=== PATIENT | male | born 1985 | race Hispanic/Latino ===

== ENCOUNTER 2017-04-02 01:56 | Emergency (ER) | payer OTHER ==
[2017-04-02 02:11] VITALS: BP 114/75; PULSE 75; RESP 17; TEMP 98.3; O2SAT 99
[2017-04-02] MEDS ORDERED: Sodium Chloride 0.9% 1,000 ML IV STA (02:29)
--- NOTE | 2017-04-02 03:20 | ED PDOC ---
HPI: General Adult Time Seen by Provider: 04/02/17 02:05 Chief Complaint (Nursing): ENT Problem Chief Complaint (Provider): ENT Problem History Per: Patient History/Exam Limitations: no limitations Onset/Duration Of Symptoms: Days (x 1 week) Current Symptoms Are (Timing): Still Present Additional Complaint(s): 31 year old male presents to the ED complaining of a sore throat and painful swallowing, onset 1 week ago. He visited [facility] where he was given antibiotics. He finished the antibiotics and still was in pain. He then was switched by MD to steroids which he also reports finishing with no relief. Yesterday he was put on clindamycin and took 60mg of prednisone but only took 1 dose. Still having pain on right side with swelling on his face. Denies fever or chills. PMD: none provided Past Medical History Reviewed: Historical Data, Nursing Documentation, Vital Signs Vital Signs: Last Vital Signs Temp 98.3 F 04/02/17 01:56 Pulse 75 04/02/17 01:56 Resp 17 04/02/17 01:56 BP 114/75 04/02/17 01:56 Pulse Ox 99 04/02/17 04:35 - Medical History PMH: No Chronic Diseases - Surgical History Surgical History: No Surg Hx - Family History Family History: States: Unknown Family Hx - Home Medications Home Medications: Ambulatory Orders Medication Instructions Recorded Naproxen 500 mg PO Q6 #30 tab 04/02/17 Prednisone [Deltasone] 20 mg PO DAILY #3 tablet 04/02/17 - Allergies Allergies/Adverse Reactions: Allergies Allergy/AdvReac Type Severity Reaction Status Date / Time amoxicillin Allergy Mild RASH Verified 04/02/17 02:05 Review of Systems ROS Statement: Except As Marked, All Systems Reviewed And Found Negative Constitutional: Negative for: Fever, Chills ENT: Positive for: Throat Pain, Other (painful swallowing and facial swelling) Physical Exam - Reviewed Nursing Documentation Reviewed: Yes Vital Signs Reviewed: Yes - Physical Exam Appears: Positive for: Non-toxic, No Acute Distress Head Exam: Positive for: ATRAUMATIC, NORMOCEPHALIC Skin: Positive for: Normal Color, Warm, Dry Eye Exam: Positive for: Normal appearance, EOMI, PERRL ENT: Positive for: Tonsillar Swelling (right tonsillar enlargement). Negative for: Other (peritonsillar abscess) Neck: Positive for: Painless ROM (LAD on right side of neck) Cardiovascular/Chest: Positive for: Regular Rate, Rhythm. Negative for: Murmur Respiratory: Positive for: Normal Breath Sounds. Negative for: Respiratory Distress Neurologic/Psych: Positive for: Alert, Oriented - Laboratory Results Result Diagrams: 04/02/17 03:22 04/02/17 03:22 - ECG O2 Sat by Pulse Oximetry: 99 (RA) Pulse Ox Interpretation: Normal Medical Decision Making Medical Decision Making: Time: 02:24 Impression: Initial Plan: --BMP --Lactic Acid plasma --CBC --Normal saline IV 1,000 mls/hr --Solumedrol 125 mg IVP --Toradol 30 mg IVP --Strep group --Throat cx Strep --results are negative. Labs --Elevated WBC count likely 2/2 to prednisone yesterday. Patient will be discharged home. Was given instruction to continue taking Clindamycin and follow up with PMD as needed. Return to ED if symptoms persist or worsen. Scribe Attestation: Documented by Twila Gould, acting as a scribe for Terry Toribio MD Provider Scribe Attestation: All medical record entries made by the Scribe were at my direction and personally dictated by me. I have reviewed the chart and agree that the record accurately reflects my personal performance of the history, physical exam, medical decision making, and the department course for this patient. I have also personally directed, reviewed, and agree with the discharge instructions and disposition. Disposition - Clinical Impression Clinical Impression: Pharyngitis - Patient ED Disposition Is Patient to be Admitted: No - Disposition Referrals: Luis Arriola [place] [Outside] Disposition Time: 04:35 Condition: IMPROVED Prescriptions: Naproxen 500 mg PO Q6 #30 tab Prednisone [Deltasone] 20 mg PO DAILY #3 tablet Instructions: Pharyngitis (ED) Forms: [employer] (Hungarian)
[2017-04-02 03:28] LABS: BASO # 0.1 K/uL (0.0-0.2); BASO % 0.5 % (0.0-2.0); EOS # 0.6 K/uL (0.0-0.7); EOS % 2.9 % (0.0-4.0); HEMOGLOBIN 12.6 g/dL (12.0-18.0); MEAN CELL VOLUME 92.1 fl (80.0-94.0); MEAN CORPUSCULAR HEMOGLOBIN 30.4 pg (27.0-31.0); MEAN PLATELET VOLUME 7.8 fl (7.2-11.7); MONO # 1.9 K/uL (0.0-0.8); NEUT # 15.9 K/uL (1.8-7.0); NEUT % 73.6 % (50.0-75.0); NRBC % 0.2 % (0.0-0.0); RBC 4.15 Mil/uL (4.40-5.90); RED CELL DISTRIBUTION WIDTH 12.8 % (11.5-14.5)
[2017-04-02 03:39] LABS: BLOOD UREA NITROGEN 17 mg/dl (9-20); CALCIUM 9.2 mg/dL (8.4-10.2); GFR AFRICAN-AMERICAN > 60; GFR NON-AFRICAN AMERICAN > 60
[2017-04-02 05:23] LABS: WHITE BLOOD COUNT 21.6 K/uL (4.8-10.8)
== END 2017-04-02 04:24 | disposition home or self-care (01) ==
LOC: H.ER 01:56
DX: J02.9 Acute pharyngitis, unspecified (principal); R22.0 Localized swelling, mass and lump, head; D72.829 Elevated white blood cell count, unspecified
CPT/HCPCS: 80048; 83605; 85025; 87070; 87430; 96374; 96375; 99283; J1885; J2930; J7040